=== PATIENT | male | born 1960 | race Caucasian/White ===

== ENCOUNTER 2017-05-31 11:59 | Emergency (ER) | payer BC, MEDICARE ==
[2017-05-31 12:25] VITALS: RESP 18; O2SAT 96
--- NOTE | 2017-05-31 14:14 | RAD ---
PROCEDURE: Left Foot Radiographs. HISTORY: pain COMPARISON: None available. FINDINGS: BONES: Acute displaced fracture of the proximal 3rd metatarsal. Irregularity noted about the proximal 5th phalanx also concerning for nondisplaced fracture. JOINTS: No dislocation. SOFT TISSUES: Soft tissue swelling. Vascular calcifications. No evidence of radiopaque foreign body. OTHER FINDINGS: None. IMPRESSION: Acute displaced fracture of the proximal 3rd metatarsal. Irregularity noted about the proximal 5th phalanx also concerning for nondisplaced fracture. Soft tissue swelling.
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
[2017-05-31] MEDS ORDERED: Lidocaine 1% Inj (20ml) ONE (15:48)
[2017-05-31] MEDS ORDERED: Bacitracin 500 Units/gm Oint Foilpak UD ONE (17:33)
[2017-05-31 18:11] VITALS: BP 144/81; PULSE 88; TEMP 97.9
--- NOTE | 2017-06-01 12:59 | CARD ---
APPROVED REPORT EKG Measurement Heart [id number] MN [id number] [id number] <Conclusion> Normal sinus rhythm Nonspecific T wave abnormality Abnormal ECG
== END 2017-05-31 18:11 | disposition home or self-care (01) ==
LOC: C.ER 11:59
DX: S01.311A Laceration without foreign body of right ear, initial encounter (principal); S01.511A Laceration without foreign body of lip, initial encounter; S92.332A Displaced fracture of third metatarsal bone, left foot, initial encounter for closed fracture; Y04.0XXA Assault by unarmed brawl or fight, initial encounter

== ENCOUNTER 2017-07-24 20:54 | Emergency (ER) | payer BC, MEDICARE ==
[2017-07-24 21:27] VITALS: O2SAT 97
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
[2017-07-25 00:38] VITALS: BP 167/83; PULSE 68; RESP 18; TEMP 98.3
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
== END 2017-07-25 00:47 | disposition home or self-care (01) ==
LOC: C.ER 20:54
DX: Z48.02 Encounter for removal of sutures (principal); S92.302A Fracture of unspecified metatarsal bone(s), left foot, initial encounter for closed fracture; Y09 Assault by unspecified means